=== PATIENT | female | born 1955 | race Two or more races ===

== ENCOUNTER 2018-06-04 11:06 | Emergency (ER) | payer BC, MEDICAID ==
[~2018-06-04] VITALS: Ht 162.6 cm; Wt 64.1 kg
[2018-06-04] MEDS ORDERED: KETOROLAC 30MG/ML VIAL IM ONE (14:30)
[2018-06-04 16:36] LABS: COLOR URINE YELLOW (YELLOW); KETONES URINE TRACE (NEGATIVE); LEUKOCYTE ESTERASE URINE 1+ (NEGATIVE); NITRITE URINE NEGATIVE (NEGATIVE); OCCULT BLOOD URINE NEGATIVE (NEGATIVE); PH URINE 5.5 (4.5-8.0); PROTEIN URINE TRACE (NEGATIVE); SPECIFIC GRAVITY URINE 1.023 (1.005-1.030); UROBILINOGEN URINE 0.2 E.U./dL (0.2-1.0)
[2018-06-04 16:50] LABS: CLARITY URINE CLEAR (CLEAR)
[2018-06-04 17:48] VITALS: BP 126/84
== END 2018-06-04 17:49 | disposition home or self-care (01) ==
LOC: ER 11:27
DX: M79.604 Pain in right leg (principal); R20.2 Paresthesia of skin; E11.9 Type 2 diabetes mellitus without complications
CPT/HCPCS: 73502; 73590; 81003; 93971; 96372; 99284; J1885

== ENCOUNTER 2019-12-18 11:34 | Emergency (ER) | payer BC, MEDICAID, MEDICARE ==
[~2019-12-18] VITALS: Ht 165.1 cm; Wt 78.0 kg
[2019-12-18] MEDS ORDERED: TRAMADOL 50MG TABLET PO ONE (11:45)
[2019-12-18 12:00] VITALS: BP 128/72
== END 2019-12-18 15:24 | disposition home or self-care (01) ==
LOC: ER 11:34
DX: S20.211A Contusion of right front wall of thorax, initial encounter (principal); I10 Essential (primary) hypertension; E11.9 Type 2 diabetes mellitus without complications; Z90.49 Acquired absence of other specified parts of digestive tract; W19.XXXA Unspecified fall, initial encounter; Y93.89 Activity, other specified; Y92.89 Other specified places as the place of occurrence of the external cause
CPT/HCPCS: 71045; 93005; 99283

== ENCOUNTER 2021-11-27 12:46 | Emergency (ER) | payer MEDICAID, MEDICARE ==
[~2021-11-27] VITALS: Ht 157.5 cm; Wt 65.0 kg
[2021-11-27 13:37] VITALS: BP 127/41
[2021-11-27] MEDS ORDERED: ACETAMINOPHEN WITH CODEINE 300/30MG TABLET PO ONE (14:45)
[2021-11-27] MEDS ORDERED: INHA1INH8 MC (16:32)
[2021-11-27] MEDS ORDERED: T3 PO (16:32)
[2021-11-27] MEDS ORDERED: LIDO1ADH23 TP (16:32)
== END 2021-11-27 16:46 | disposition home or self-care (01) ==
LOC: ER 13:34
DX: S22.31XA Fracture of one rib, right side, initial encounter for closed fracture (principal); W22.8XXA Striking against or struck by other objects, initial encounter; Y93.89 Activity, other specified; Y92.89 Other specified places as the place of occurrence of the external cause; Y99.8 Other external cause status; E11.9 Type 2 diabetes mellitus without complications; Z90.49 Acquired absence of other specified parts of digestive tract
CPT/HCPCS: 71101; 99283

== ENCOUNTER 2022-05-22 09:53 | Inpatient (IN) | payer MEDICARE, MEDICAID ==
[~2022-05-22] VITALS: Ht 309.9 cm; Wt 66.7 kg
[~2022-05-22 09:53] MED LIST: INHA1INH8 MC; LIDO1ADH23 TP; T3 PO
[2022-05-22] MEDS ORDERED: SODIUM CHLORIDE 0.9% 1,000 ML IV ONE (10:15)
[2022-05-22 11:10] LABS: BASOPHILS % 0.7 % (0.0-2.0); EOSINOPHILS % 1.1 % (0.0-5.0); HEMATOCRIT. 38.8 % (36.0-48.0); HEMOGLOBIN. 13.3 g/dL (12.0-16.0); MEAN CORPUSCULAR HEMOGLOBIN 29.4 pg (28.0-32.0); MEAN CORPUSCULAR VOLUME 85.5 fL (81.0-99.0); MEAN PLATELET VOLUME 7.9 fl (7.4-10.4); MONOCYTES % 4.2 % (2.0-8.0); PLATELET 240 x1000/uL (130-400); RED BLOOD CELL COUNT 4.54 mill/uL (4.2-5.4); RED CELL DISTRIBUTION WIDTH 13.7 % (11.6-14.6)
[2022-05-22 11:11] LABS: CHLORIDE 99 mEq/L (98-107)
[2022-05-22 11:16] LABS: PROTHROMBIN TIME 10.5 sec (9.6-11.0)
[2022-05-22] MEDS ORDERED: INSULIN REGULAR (HUMULIN R) 300UNITS/3ML VIAL SUBCUT NR (12:15)
[2022-05-22] MEDS ORDERED: ONDANSETRON HCL 4MG/2ML INJ IV PRN (14:15)
[2022-05-22] MEDS ORDERED: DEXTROSE 50% WATER 50ML SYRINGE IV PRN (14:15)
[2022-05-22] MEDS ORDERED: IOHEXOL-300 100 ML BOTTLE ONE ×2 (15:10→23:09)
[2022-05-22] MEDS: PANTOPRAZOLE SODIUM 40 MG/VIAL IV SCH (17:49)
[2022-05-22] MEDS: BLOOD SUGAR DIAGNOSTIC STRIP TEST SCH ×2 (18:04→21:00)
[2022-05-22] MEDS: INSULIN LISPRO 100 UNITS/ML SUBCUT SCH ×2 (18:20→21:00)
[2022-05-22] MEDS: ACETAMINOPHEN 325MG TABLET PO PRN (21:57)
[2022-05-22 22:06] VITALS: BP 130/43
[2022-05-22] MEDS ORDERED: METF-874 MT (22:27)
[2022-05-23] VITALS: BP_SYST 130; BP_SYST 97; BP_DIAS 43; BP_DIAS 50
[2022-05-23 04:00] VITALS: BP 130/43
[2022-05-23 06:34] LABS: EOSINOPHILS % 2.3 % (0.0-5.0); HEMATOCRIT. 35.9 % (36.0-48.0); HEMOGLOBIN. 12.5 g/dL (12.0-16.0); LYMPHOCYTES % 28.3 % (20.0-50.0); MEAN CORPUSCULAR HEMOGLOBIN 29.4 pg (28.0-32.0); MEAN CORPUSCULAR VOLUME 84.7 fL (81.0-99.0); MEAN PLATELET VOLUME 7.6 fl (7.4-10.4); MONOCYTES % 6.7 % (2.0-8.0); NEUTROPHILS % 61.7 % (40.0-76.0); PLATELET 239 x1000/uL (130-400); RED BLOOD CELL COUNT 4.24 mill/uL (4.2-5.4); RED CELL DISTRIBUTION WIDTH 13.6 % (11.6-14.6)
[2022-05-23] MEDS: BLOOD SUGAR DIAGNOSTIC STRIP TEST SCH ×4 (07:20→21:00)
[2022-05-23] MEDS: INSULIN LISPRO 100 UNITS/ML SUBCUT SCH ×4 (07:38→21:00)
[2022-05-23 08:00] VITALS: BP 143/63
[2022-05-23] MEDS: PANTOPRAZOLE SODIUM 40 MG/VIAL IV SCH (08:31)
[2022-05-23] MEDS: ACETAMINOPHEN 325MG TABLET PO PRN (11:05)
[2022-05-23 12:00] VITALS: BP 149/56
[2022-05-23 12:59] LABS: HEMATOCRIT 35.6 % (36.0-48.0); HEMOGLOBIN 12.3 g/dL (12.0-16.0)
[2022-05-23 13:55] LABS: FERRITIN 29 ng/mL (10-291)
[2022-05-23 14:04] LABS: CHLORIDE 105 mEq/L (98-107)
[2022-05-23 14:21] LABS: TOTAL IRON BINDING CAPACITY 288 ug/dL (250-450)
[2022-05-23 16:00] VITALS: BP 139/49
[2022-05-23] MEDS ORDERED: METFORMIN HCL 500MG TABLET PO SCH (18:00)
[2022-05-23 18:29] LABS: VITAMIN B12 SERUM 365 pg/mL (211-911)
[2022-05-23 20:00] VITALS: BP 147/51
[2022-05-23 21:43] LABS: HEMATOCRIT 34.9 % (36.0-48.0)
[2022-05-24] VITALS: BP 142/51
[2022-05-24 01:00] LABS: HEMATOCRIT 34.7 % (36.0-48.0)
[2022-05-24 04:00] VITALS: BP 139/47
[2022-05-24] MEDS: BLOOD SUGAR DIAGNOSTIC STRIP TEST SCH ×2 (06:51→12:20)
[2022-05-24 07:13] LABS: BASOPHILS % 1.1 % (0.0-2.0); EOSINOPHILS % 4.2 % (0.0-5.0); HEMATOCRIT. 37.2 % (36.0-48.0); HEMOGLOBIN. 13.2 g/dL (12.0-16.0); LYMPHOCYTES % 34.6 % (20.0-50.0); MEAN CORPUSCULAR HEMOGLOBIN 29.9 pg (28.0-32.0); MEAN CORPUSCULAR VOLUME 84.2 fL (81.0-99.0); MEAN PLATELET VOLUME 7.4 fl (7.4-10.4); MONOCYTES % 5.5 % (2.0-8.0); NEUTROPHILS % 54.6 % (40.0-76.0); PLATELET 239 x1000/uL (130-400); RED BLOOD CELL COUNT 4.42 mill/uL (4.2-5.4); RED CELL DISTRIBUTION WIDTH 13.7 % (11.6-14.6)
[2022-05-24] MEDS: INSULIN LISPRO 100 UNITS/ML SUBCUT SCH ×2 (07:45→14:30)
[2022-05-24 07:53] LABS: CHLORIDE 104 mEq/L (98-107)
[2022-05-24 08:00] VITALS: BP 167/56
[2022-05-24] MEDS: ACETAMINOPHEN 325MG TABLET PO PRN (08:15)
[2022-05-24] MEDS ORDERED: METFORMIN HCL 500MG TABLET PO SCH (09:00)
[2022-05-24 11:31] VITALS: BP 123/57
[2022-05-24 12:00] VITALS: BP 117/38
[2022-05-24 12:42] LABS: HEMATOCRIT 36.9 % (36.0-48.0); HEMOGLOBIN 12.5 g/dL (12.0-16.0)
== END 2022-05-24 14:35 | disposition home or self-care (01) | DRG 379 ==
LOC: ER 09:53 → EDBEDREQ 12:14 → EDBEDREQTM 12:14 → MICUSO 13:45 → EDBEDREQSVC 13:48 → EDBEDREQTM 13:48 → EDBEDREQ 13:48 → ENRESERV 15:24 → 6EST 21:44
PROVIDERS: ADMIT Internal Medicine; ATTEND Internal Medicine
DX: K92.2 Gastrointestinal hemorrhage, unspecified (principal); E11.65 Type 2 diabetes mellitus with hyperglycemia; M19.90 Unspecified osteoarthritis, unspecified site; F17.210 Nicotine dependence, cigarettes, uncomplicated; K64.4 Residual hemorrhoidal skin tags; Z90.49 Acquired absence of other specified parts of digestive tract; K76.0 Fatty (change of) liver, not elsewhere classified; Z79.4 Long term (current) use of insulin
CPT/HCPCS: 36415; 74177; 76700; 80048; 80053; 82270; 82607; 82728; 82746; 82962; 83540; 83550; 83605; 85014; 85018; 85025; 85044; 86850; 86900; 87015; 87045; 87177; 87209; 87427; 87449; 89055; 93005; 99285; C9113; J1815; J2405; J7030; Q9967

== ENCOUNTER 2025-01-26 13:15 | Inpatient (IN) | payer OTHER, MEDICARE, MEDICAID ==
[~2025-01-26] VITALS: Ht 165.1 cm; Wt 62.3 kg
[~2025-01-26 13:15] MED LIST changes: +METF-1150 MT; +SIMV10TA97 PO; +SULF1TAB48 MT
[2025-01-26 13:21] VITALS: O2SAT 97
[2025-01-26 15:01] LABS: BASOPHILS % 1.4 % (0.0-2.0); EOSINOPHILS % 2.3 % (0.0-5.0); HEMATOCRIT. 33.1 % (36.0-48.0); HEMOGLOBIN. 11.5 g/dL (12.0-16.0); LYMPHOCYTES % 21.8 % (20.0-50.0); MEAN PLATELET VOLUME 7.9 fl (7.4-10.4); MONOCYTES % 5.9 % (2.0-8.0); NEUTROPHILS % 68.6 % (40.0-76.0); PLATELET 283 x1000/uL (130-400); RED BLOOD CELL COUNT 3.93 mill/uL (4.2-5.4); RED CELL DISTRIBUTION WIDTH 14.5 % (11.6-14.6)
[2025-01-26 15:19] LABS: INR 0.9; TROPONIN I HIGH SENSITIVITY 22 ng/L (3.0-34)
[2025-01-26 15:20] LABS: CREATININE 0.8 mg/dL (0.6-1.0)
[2025-01-26 15:21] LABS: UREA NITROGEN BLOOD 14 mg/dL (9-23)
[2025-01-26 15:22] LABS: ASPARTATE AMINOTRANSFERASE 20 IU/L (<34)
[2025-01-26 15:23] LABS: BILIRUBIN DIRECT < 0.1 mg/dL (<=3.0); BILIRUBIN TOTAL 0.2 mg/dL (0.1-1.0); PROTEIN TOTAL 6.5 g/dL (6.0-8.3)
[2025-01-26] MEDS: KETOROLAC 15MG/ML VIAL IV ONE (15:57)
[2025-01-26] MEDS: ASPIRIN 325MG EC TABLET PO ONE (15:57)
[2025-01-26] MEDS ORDERED: CLONIDINE 0.1MG TABLET PO PRN (16:30)
[2025-01-26] MEDS ORDERED: IPRATROPIUM/ALBUTEROL 0.5-3(2.5)MG/3ML NEB HHN PRN (16:30)
[2025-01-26] MEDS ORDERED: ONDANSETRON HCL 4MG/2ML INJ IV PRN (16:30)
[2025-01-26] MEDS ORDERED: MORPHINE SULFATE 4 MG/ML INJ (FOR IV/IM USE) IV PRN (16:30)
[2025-01-26] MEDS ORDERED: DEXTROSE 50% WATER 50ML SYRINGE IV PRN (16:30)
[2025-01-26] MEDS ORDERED: GUAIFENESIN 200MG/10ML SUGAR FREE UDC PO PRN (16:30)
[2025-01-26] MEDS ORDERED: KETOROLAC 15MG/ML VIAL IV PRN (16:30)
[2025-01-26 16:43] LABS: TROPONIN I HIGH SENSITIVITY 22 ng/L (3.0-34)
[2025-01-26] MEDS ORDERED: NALOXONE HCL 0.4MG/ML VIAL IV PRN (16:45)
[2025-01-26] MEDS: BLOOD SUGAR DIAGNOSTIC STRIP TEST SCH (17:00)
[2025-01-26 18:18] LABS: TRIGLYCERIDE 120 mg/dL (0-150)
[2025-01-26 18:19] LABS: LDL CHOLESTEROL 90 mg/dL (5-100)
[2025-01-26 18:20] LABS: PHOSPHORUS 3.7 mg/dL (2.5-4.9)
[2025-01-26] MEDS: PANTOPRAZOLE 40MG DR TABLET PO SCH (19:11)
[2025-01-26] MEDS: HYDRALAZINE 20MG/ML VIAL IV PRN (19:11)
[2025-01-26] MEDS: INSULIN LISPRO 100 UNITS/ML SUBCUT SCH (19:21)
[2025-01-26 20:00] VITALS: BP 160/69; PULSE 84; RESP 18; TEMP 36.3; TEMP 36.3624; O2SAT 97
[2025-01-26] MEDS: ACETAMINOPHEN 325MG TABLET PO PRN (23:24)
[2025-01-26] MEDS: INSULIN GLARGINE 100 UNITS/ML SUBCUT SCH (23:26)
[2025-01-26] MEDS: ATORVASTATIN CALCIUM 40MG TABLET PO SCH (23:27)
[2025-01-26] MEDS: MAGNESIUM 2 G PREMIX 50 ML IV NR (23:31)
[2025-01-27] VITALS (7 sets, daily range): BP systolic 120–164; BP diastolic 35–68; PULSE 71–79; RESP 17–18; TEMP 36.1–36.6; O2SAT 95–100
[2025-01-27 00:08] LABS: TROPONIN I HIGH SENSITIVITY 23 ng/L (3.0-34)
[2025-01-27] MEDS: ENOXAPARIN 40MG/0.4ML SYR SUBCUT SCH (08:36)
[2025-01-27] MEDS: FERROUS SULFATE 325MG TABLET PO SCH (08:36)
[2025-01-27] MEDS: ASPIRIN 81MG TABLET PO SCH (08:37)
[2025-01-27 09:09] LABS: BASOPHILS % 0.7 % (0.0-2.0); EOSINOPHILS % 3.7 % (0.0-5.0); HEMATOCRIT. 33.8 % (36.0-48.0); HEMOGLOBIN. 11.4 g/dL (12.0-16.0); LYMPHOCYTES % 28.9 % (20.0-50.0); MEAN PLATELET VOLUME 7.7 fl (7.4-10.4); MONOCYTES % 8.4 % (2.0-8.0); NEUTROPHILS % 58.3 % (40.0-76.0); PLATELET 272 x1000/uL (130-400); RED BLOOD CELL COUNT 4.02 mill/uL (4.2-5.4); RED CELL DISTRIBUTION WIDTH 14.5 % (11.6-14.6)
[2025-01-27 09:29] LABS: ASPARTATE AMINOTRANSFERASE 18 IU/L (<34); BILIRUBIN DIRECT 0.1 mg/dL (<=3.0); BILIRUBIN TOTAL 0.3 mg/dL (0.1-1.0); PROTEIN TOTAL 6.1 g/dL (6.0-8.3)
[2025-01-27 09:37] LABS: CREATININE 0.7 mg/dL (0.6-1.0)
[2025-01-27 09:38] LABS: UREA NITROGEN BLOOD 12 mg/dL (9-23)
[2025-01-27 09:39] LABS: TROPONIN I HIGH SENSITIVITY 27 ng/L (3.0-34)
[2025-01-27 09:40] LABS: PHOSPHORUS 3.7 mg/dL (2.5-4.9)
[2025-01-27 09:43] LABS: T4 FREE 1.31 ng/dL (0.89-1.76)
[2025-01-27] MEDS: ACETAMINOPHEN 325MG TABLET PO PRN (11:11)
[2025-01-27 12:12] LABS: FOLIC ACID (FOLATE) SERUM 12.36 ng/mL (>5.38); VITAMIN B12 SERUM 288 pg/mL (211-911)
[2025-01-27] MEDS ORDERED: REGADENOSON 0.4 MG/5 ML IV ONE (12:30)
[2025-01-27] MEDS: MORPHINE SULFATE 10 MG/ML INJ (NOT FOR IM USE) IV PRN (15:57)
[2025-01-28] VITALS: BP 135/67; PULSE 74; RESP 19; TEMP 36.4; O2SAT 98
[2025-01-28 04:00] VITALS: BP 130/62; PULSE 72; RESP 18; TEMP 35.8; O2SAT 95
[2025-01-28 04:48] LABS: CLARITY URINE CLOUDY (CLEAR); COLOR URINE YELLOW (YELLOW); GLUCOSE URINE NEGATIVE (NEGATIVE); KETONES URINE NEGATIVE (NEGATIVE); LEUKOCYTE ESTERASE URINE 3+ (NEGATIVE); NITRITE URINE NEGATIVE (NEGATIVE); OCCULT BLOOD URINE TRACE (NEGATIVE); PH URINE 5.5 (4.5-8.0); PROTEIN URINE NEGATIVE (NEGATIVE); SPECIFIC GRAVITY URINE 1.007 (1.005-1.030); UROBILINOGEN URINE 0.2 E.U./dL (0.2-1.0)
[2025-01-28 05:21] LABS: BACTERIA URINE 2+; RBC URINE 0-2 /hpf (0-2); SQUAMOUS EPITHELIAL CELL URINE FEW /lpf (RARE/1+); WBC URINE 25-50 /hpf (0-2)
[2025-01-28] MEDS ORDERED: REGADENOSON 0.4 MG/5 ML IV NR (06:00)
[2025-01-28 07:36] LABS: HEPATITIS C AB NON REACTIVE (Neg) (Negative)
[2025-01-28 08:00] VITALS: BP 119/45; PULSE 74; RESP 17; TEMP 36.3; O2SAT 100
[2025-01-28] MEDS: LOSARTAN 25 MG TABLET PO SCH (11:22)
[2025-01-28 11:40] LABS: PLATELET 302 x1000/uL (130-400); RED BLOOD CELL COUNT 4.32 mill/uL (4.2-5.4); RED CELL DISTRIBUTION WIDTH 14.2 % (11.6-14.6)
[2025-01-28] MEDS ORDERED: METOPROLOL TARTRATE 5MG/5ML VIAL IV PRN (11:45)
[2025-01-28 11:59] LABS: CREATININE 0.6 mg/dL (0.6-1.0); UREA NITROGEN BLOOD 8 mg/dL (9-23)
[2025-01-28 12:00] VITALS: BP 148/73; PULSE 81; RESP 18; TEMP 36.1; O2SAT 96
[2025-01-28] MEDS ORDERED: LIDO-116 TOP (14:59)
[2025-01-28] MEDS: LIDOCAINE 5% PATCH TOP SCH (15:20)
[2025-01-28 16:03] VITALS: BP 136/55; PULSE 80; RESP 17; TEMP 97.4
[2025-01-28 16:32] VITALS: BP 136/55; PULSE 80; RESP 17; TEMP 36.3; O2SAT 97
[2025-01-29] MEDS ORDERED: FAMOTIDINE 20MG TABLET PO SCH (09:00)
== END 2025-01-28 17:30 | disposition home or self-care (01) | DRG 313 ==
LOC: ER 13:15 → EDBEDREQ 15:45 → EDBEDREQTM 15:45 → 6WST 19:03
PROVIDERS: ADMIT Internal Medicine; ATTEND Internal Medicine
DX: R07.89 Other chest pain (principal); S22.31XA Fracture of one rib, right side, initial encounter for closed fracture; I20.0 Unstable angina; M19.90 Unspecified osteoarthritis, unspecified site; I10 Essential (primary) hypertension; D50.9 Iron deficiency anemia, unspecified; S81.801A Unspecified open wound, right lower leg, initial encounter; E11.9 Type 2 diabetes mellitus without complications; F17.210 Nicotine dependence, cigarettes, uncomplicated; Z79.4 Long term (current) use of insulin; Z79.899 Other long term (current) drug therapy; V89.2XXA Person injured in unspecified motor-vehicle accident, traffic, initial encounter; Y93.89 Activity, other specified; Y92.89 Other specified places as the place of occurrence of the external cause; Y99.8 Other external cause status; I45.10 Unspecified right bundle-branch block
CPT/HCPCS: 36415; 71045; 71110; 80048; 80061; 80076; 81003; 82550; 82607; 82728; 82746; 82962; 83036; 83540; 83550; 83735; 83880; 84100; 84439; 84443; 84484; 85025; 85027; 85379; 86705; 86850; 86900; 87077; 87186; 87340; 93005; 93306; 93970; 96374; 97162; 97166; 99285; A4606; G0378; J0360; J1650; J1815; J1885; J2270; J2785; J3475